=== PATIENT | female | born 1975 | race Caucasian/White ===

== ENCOUNTER 2022-08-22 18:46 | Emergency (ER) | payer MEDICAID ==
[~2022-08-22] VITALS: Ht 165.1 cm; Wt 99.8 kg
[~2022-08-22 18:46] MED LIST: DILANTIN
[2022-08-22 18:54] VITALS: BP_SYST 143
--- NOTE | 2022-08-22 20:00 | NUR ---
CALL PT NAME IN THE WR.NO ANSWER.
--- NOTE | 2022-08-22 20:05 | NUR ---
CALL PT NAME IN THE WR.NO ANSWER.
--- NOTE | 2022-08-22 20:10 | NUR ---
Patient left without being seen.
== END 2022-08-22 20:10 | disposition left against medical advice (07) ==
LOC: SED 18:46
DX: R07.9 Chest pain, unspecified (principal); Z88.0 Allergy status to penicillin; Z53.21 Procedure and treatment not carried out due to patient leaving prior to being seen by health care provider
CPT/HCPCS: 93005; 99281